=== PATIENT | female | born 1965 | race Caucasian/White ===

== ENCOUNTER → 2016-08-20 | Outpatient (CLI) | payer OTHER ==
--- NOTE | 2016-08-20 09:35 | REPMRS ---
Patient History The patient states she had a clinical breast exam in Patient is nulliparous. No known family history of cancer. Reductions of both breasts, October 2014. Took hormonal contraceptives for 15 years. Digital Woman Screen Mammo: August 20, 2016 - Exam #: [id number] Bilateral CC and MLO view(s) were taken. Technologist: Jimena Brown, Technologist Prior study comparison: August 20, 2015, digital woman screen mammo performed at [facility]. July 19, 2014, digital woman screen mammo performed at [facility]. January 11, 2013, right breast digital mammo diagnostic unilateral, performed at [facility]. FINDINGS: There are scattered fibroglandular densities. There has been no change in the appearance of the mammogram from the prior studies. There is a mild amount of scattered fibroglandular density which is fairly symmetric. There is no interval development of dominant mass, architectural distortion, or clustered microcalcification suggestive of malignancy. ASSESSMENT: BI-RADS/ACR category 1 mammogram. Negative. Recommendation Routine screening mammogram in 1 year (for women over age 40). This mammogram was interpreted with the aid of an FDA-approved computer-aided dectection system. Electronically Signed By: Mookie Lorenzo MD 08/20/16 0960
== END ==
LOC: M WHC 08:06
PROVIDERS: ATTEND Nurse Practitioner Family
DX: Z12.31 Encounter for screening mammogram for malignant neoplasm of breast (principal); Z92.0 Personal history of contraception

== ENCOUNTER → 2017-11-23 | Outpatient (CLI) | payer BC | LOC: M WHC 08:01 | DX: Z12.31 Encounter for screening mammogram for malignant neoplasm of breast (principal) | CPT/HCPCS: 77067 ==

== ENCOUNTER 2018-02-04 09:06 | Day surgery (SDC) | payer BC ==
[~2018-02-04] VITALS: Ht 154.9 cm; Wt 64.0 kg
[~2018-02-04 09:06] MED LIST: ASPI1TAB PO; LORA-243 PO; NEXI40CA PO; WELLTAB40 PO
[2018-02-04] MEDS ORDERED: PROPOFOL 200 MG/20 ML VIAL As Ordered ONE (09:44)
[2018-02-04] MEDS ORDERED: LIDOCAINE 2% INJ 100 MG/5 ML SDV (FOR ANES.) As Ordered ONE (09:44)
[2018-02-04] MEDS ORDERED: NS 1,000 ML IV ONE (09:45)
--- NOTE | 2018-02-04 09:58 | ROOR ---
Patient Name: Kimberlee Seaman Procedure Date: 02/04/2018 9:42 AM Date of : 1965 Age: 52 Room: [facility] Gender: Female Note Status: Finalized Procedure: Colonoscopy Indications: Screening for malignant neoplasm in the colon Providers: Guille CALDERON MD Referring MD: ROBERT DASILVA NP Requesting Provider: Medicines: Monitored Anesthesia Care Complications: No immediate complications. Procedure: Pre-Anesthesia Assessment: - The heart rate, respiratory rate, oxygen saturations, blood pressure, adequacy of pulmonary ventilation, and response to care were monitored throughout the procedure. The Colonoscope was introduced through the anus and advanced to the terminal ileum, with identification of the appendiceal orifice and IC valve. The colonoscopy was performed without difficulty. The patient tolerated the procedure well. The quality of the bowel preparation was good. Findings: The perianal and digital rectal examinations were normal. Small Internal Hemorrhoids. The entire examined colon appeared normal on direct and retroflexion views. Retroflexion in the right colon was performed. Impression: - The entire colon is normal on direct and retroflexion views. - No specimens collected. Recommendation: - Repeat colonoscopy in 10 years for screening purposes. Guille Calderon MD Guille CALDERON MD 02/04/2018 9:58:29 AM This report has been signed electronically. Number of Addenda: 0 Note Initiated On: 02/04/2018 9:42 AM Estimated Blood Loss: Estimated blood loss: none.
[2018-02-04 10:22] VITALS: BP 129/78
== END 2018-02-04 10:21 | disposition home or self-care (01) ==
LOC: M OPP 09:06
PROVIDERS: ATTEND Internal Medicine Gastroenterology
DX: Z12.11 Encounter for screening for malignant neoplasm of colon (principal); K64.8 Other hemorrhoids; K21.9 Gastro-esophageal reflux disease without esophagitis; F32.9 Major depressive disorder, single episode, unspecified; Z79.82 Long term (current) use of aspirin; Z79.899 Other long term (current) drug therapy

== ENCOUNTER → 2019-02-16 | Outpatient (CLI) | payer BC ==
[~2019-02-16] MED LIST changes: -ASPI1TAB PO; +ASPI81TA26 PO
--- NOTE | 2019-02-16 09:20 | REPMRS ---
Patient History The patient states she had a clinical breast exam in 2019. No known family history of cancer. Reductions of both breasts, October 2014. Took hormonal contraceptives for 15 years. Digital Woman Screen Mammo: February 16, 2019 - Exam #: [id number] Bilateral CC and MLO view(s) were taken. Technologist: Radha Warren, Technologist Prior study comparison: November 23, 2017, bilateral digital woman screen mammo performed at [facility]. August 20, 2016, digital woman screen mammo performed at [facility]. August 20, 2015, digital woman screen mammo performed at [facility]. FINDINGS: There are scattered fibroglandular densities. There has been no change in the appearance of the mammogram from the prior studies. There is a mild amount of scattered fibroglandular density which is fairly symmetric. There is no interval development of dominant mass, architectural distortion, or grouped microcalcification suggestive of malignancy. 3-D tomosynthesis shows no additional findings. Assessment: BI-RADS/ACR category 1 mammogram. Negative Mammogram. Recommendation Routine screening mammogram of both breasts in 1 year (for women over age 40). This patient's Lifetime Breast Cancer Risk is estimated at 11.8 %. This mammogram was interpreted with the aid of an FDA-approved computer-aided dectection system. Electronically Signed By: Mookie Lorenzo MD 02/16/19 0919
== END ==
LOC: M WHC 08:23
PROVIDERS: ATTEND Nurse Practitioner Family
DX: Z12.31 Encounter for screening mammogram for malignant neoplasm of breast (principal)

== ENCOUNTER → 2019-02-16 | Outpatient (REF) | payer BC | LOC: M PLALAB 12:13 | PROVIDERS: ATTEND Nurse Practitioner Family | DX: Z12.4 Encounter for screening for malignant neoplasm of cervix (principal) | CPT/HCPCS: 87624; G0123 ==

== ENCOUNTER → 2020-02-21 | Outpatient (CLI) | payer BC ==
--- NOTE | 2020-02-21 11:54 | REPMRS ---
Patient History The patient states she had a clinical breast exam in February 2020. No known family history of cancer. Reductions of both breasts, October 2014. Took hormonal contraceptives for 15 years. 3D TOMOSYNTHESIS WAS PERFORMED. [facility] lifetime risk for breast cancer is 11.6%. Volpara breast density b. Digital Woman Screen Mammo: February 21, 2020 - Exam #: [id number] Bilateral CC and MLO view(s) were taken. Technologist: Chary Mcneil, Technologist Prior study comparison: February 16, 2019, bilateral digital woman screen mammo performed at [facility]. November 23, 2017, bilateral digital woman screen mammo performed at [facility]. FINDINGS: There are scattered fibroglandular densities. There has been no change in the appearance of the mammogram from the prior studies. There is a mild amount of residual fibroglandular tissue which is fairly symmetric. There is no interval development of dominant mass, architectural distortion, or clustered microcalcification suggestive of malignancy. Assessment: BI-RADS/ACR category 1 mammogram. Negative Mammogram. Recommendation Routine screening mammogram in 1 year (for women over age 40). This mammogram was interpreted with the aid of an FDA-approved computer-aided dectection system. Electronically Signed By: Sean Braswell MD 02/21/20 [id number]
== END ==
LOC: M WHC 09:08
PROVIDERS: ATTEND Nurse Practitioner Family
DX: Z12.31 Encounter for screening mammogram for malignant neoplasm of breast (principal); Z92.0 Personal history of contraception

== ENCOUNTER → 2021-04-09 | Outpatient (REF) | payer BC ==
[2021-04-09 13:22] LABS: RHEUMATOID FACTOR QUANT < 10.0 IU/ML (<15.0)
[2021-04-09 13:32] LABS: FOLATE 9.7 NG/ML; VITAMIN B12 LEVEL 581 PG/ML
== END ==
LOC: M LAB REF 11:57
PROVIDERS: ATTEND Registered Nurse
DX: R25.1 Tremor, unspecified (principal)

== ENCOUNTER → 2021-06-19 | Outpatient (REF) | payer BC | LOC: M SFHCWAGY 09:55 | PROVIDERS: ATTEND Advanced Practice Midwife | DX: N89.8 Other specified noninflammatory disorders of vagina (principal) ==

== ENCOUNTER → 2021-06-19 | Outpatient (CLI) | payer BC | LOC: M WHC 15:13 | PROVIDERS: ATTEND Advanced Practice Midwife | DX: Z12.31 Encounter for screening mammogram for malignant neoplasm of breast (principal) ==

== ENCOUNTER → 2022-06-24 | Outpatient (REF) | payer BC | LOC: M SFHCWAGY 10:20 | PROVIDERS: ATTEND Nurse Practitioner Family | DX: Z12.4 Encounter for screening for malignant neoplasm of cervix (principal) | CPT/HCPCS: 87624; G0123 ==

== ENCOUNTER → 2022-06-24 | Outpatient (CLI) | payer BC | LOC: M WHC 14:54 | PROVIDERS: ATTEND Advanced Practice Midwife | DX: Z12.31 Encounter for screening mammogram for malignant neoplasm of breast (principal) ==

== ENCOUNTER → 2023-01-28 | Outpatient (REF) | payer BC | LOC: M LAB REF 16:09 | PROVIDERS: ATTEND Physician Assistant Medical | DX: N39.0 Urinary tract infection, site not specified (principal) ==

== ENCOUNTER → 2023-03-10 | Outpatient (REF) | payer BC | LOC: M LAB REF 16:29 | PROVIDERS: ATTEND Physician Assistant Medical | DX: B96.29 Other Escherichia coli [E. coli] as the cause of diseases classified elsewhere (principal) ==

== ENCOUNTER → 2023-07-14 | Outpatient (CLI) | payer BC | LOC: M WHC 13:12 | PROVIDERS: ATTEND Nurse Practitioner Family | DX: Z12.31 Encounter for screening mammogram for malignant neoplasm of breast (principal) ==

== ENCOUNTER → 2024-03-30 | Outpatient (REF) | payer BC | LOC: M LAB REF 16:39 | PROVIDERS: ATTEND Physician Assistant Medical | DX: R21 Rash and other nonspecific skin eruption (principal) ==

== ENCOUNTER → 2024-09-15 | Outpatient (CLI) | payer OTHER | LOC: M WHC 08:28 | PROVIDERS: ATTEND Advanced Practice Midwife | DX: Z12.31 Encounter for screening mammogram for malignant neoplasm of breast (principal); R92.323 Mammographic fibroglandular density, bilateral breasts ==

== ENCOUNTER → 2024-09-29 | Outpatient (CLI) | payer OTHER | LOC: M WHC 07:56 | PROVIDERS: ATTEND Advanced Practice Midwife | DX: Z13.820 Encounter for screening for osteoporosis (principal); M85.89 Other specified disorders of bone density and structure, multiple sites ==

== ENCOUNTER → 2024-11-24 | Outpatient (CLI) | payer OTHER ==
[2024-11-24 11:22] LABS: ALT/SGPT 21 U/L (7.0-40); AST/SGOT 17 U/L (<34); CALCIUM LEVEL 9.4 MG/DL (8.5-10.1); CARBON DIOXIDE LEVEL 30 MMOL/L (20-31); CHLORIDE LEVEL 105 MMOL/L (98-107); CREATININE FOR GFR 0.75 MG/DL (0.55-1.30); GLOMERULAR FILTRATION RATE > 90.0 (>51); POTASSIUM SERUM 4.2 MMOL/L (3.5-5.1); SODIUM LEVEL 143 MMOL/L (136-145)
[2024-11-24 11:23] LABS: ESTRADIOL 51.3 PG/ML; TESTOSTERONE 14 NG/DL (14-76)
== END ==
LOC: M PLALAB 08:20
PROVIDERS: ATTEND Advanced Practice Midwife
DX: F52.0 Hypoactive sexual desire disorder (principal); N95.1 Menopausal and female climacteric states; M85.89 Other specified disorders of bone density and structure, multiple sites

== ENCOUNTER → 2025-01-08 | Outpatient (CLI) | payer OTHER ==
[2025-01-08 11:18] LABS: ESTRADIOL 28.6 PG/ML
[2025-01-08 11:19] LABS: TESTOSTERONE 65.0 NG/DL (14-76)
== END ==
LOC: M PLALAB 07:22
PROVIDERS: ATTEND Advanced Practice Midwife
DX: N95.1 Menopausal and female climacteric states (principal)